=== PATIENT | female | born 1975 | race Caucasian/White ===

== ENCOUNTER 2025-09-26 02:44 | Emergency (ER) | payer MEDICAID, SELFPAY ==
[2025-09-26 02:46] VITALS: BP 154/85; PULSE 75; RESP 18; TEMP 36.4; O2SAT 100; BMI 19.9
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
[2025-09-26 04:05] VITALS: BP 112/73; PULSE 72; RESP 16; TEMP 36.4; O2SAT 97
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
== END 2025-09-26 04:21 | disposition home or self-care (01) ==
PROVIDERS: Emergency Provider Emergency Medicine; Visit Provider Emergency Medicine
DX: Z76.0 Encounter for issue of repeat prescription (principal); F31.9 Bipolar disorder, unspecified; F41.9 Anxiety disorder, unspecified; Z79.899 Other long term (current) drug therapy; F17.210 Nicotine dependence, cigarettes, uncomplicated; Z59.02 Unsheltered homelessness
CPT/HCPCS: 99282